=== PATIENT | male | born 1995 | race African-American/Black ===

== ENCOUNTER 2017-12-05 16:31 | Emergency (ER) | payer MEDICAID ==
[~2017-12-05] VITALS: Ht 170.2 cm; Wt 72.6 kg
[~2017-12-05 16:31] MED LIST: IBUPROFEN600 M1 PO; NORCO 5-325 TA1 EACH ORAL
[2017-12-05] MEDS ORDERED: NKM (17:05)
[2017-12-05 17:11] VITALS: BP 143/60
--- NOTE | 2017-12-05 17:18 | Emergency Room Report ---
History of Present Illness General Chief Complaint: Laceration Source: Patient Present Illness HPI 22 yo male patient presents to ER complaining of laceration of his right small toe since this morning. Patient reports he was walking in his house in the dark when he accidentally kicked a shovel. Denies injury to toe nail, states skin on base of toe has been "ripped off." Patient denies foot or ankle pain; states he limps when he walk; patient requesting crutches. States he does not think "its broken"; reports able to move toes. Denies use of medication for relief of pain symptoms. Denies bleeding. States he does not know his tetanus vaccination history. Denies LOC, hitting head. Denies fever, chest pain, SOB. Allergies: Coded Allergies: NO KNOWN ALLERGIES (Unverified Allergy, Unknown, 07/25/15) Patient History Past Medical History: see triage record Reviewed Nursing Documentation: PMH: Agreed, PSxH: Agreed Nursing Documentation-PMH Past Medical History: No Stated History Review of Systems All Other Systems: negative except mentioned in HPI Physical Exam Vital Signs Date Time Temp Pulse Resp B/P (MAP) Pulse Ox O2 Delivery O2 Flow Rate FiO2 12/05/17 17:01 98.4 88 16 143/60 97 Room Air 98.4 Sp02 EP Interpretation: reviewed, normal General Appearance: no apparent distress, alert, GCS 15, non-toxic Head: normocephalic, atraumatic Eyes: bilateral eye normal inspection, bilateral eye PERRL ENT: hearing grossly normal, normal pharynx, no angioedema, normal voice Respiratory: chest non-tender, lungs clear, normal breath sounds, speaking full sentences Cardiovascular #1: regular rate, rhythm, no edema Cardiovascular #2: 2+ dorsalis pedis (R), 2+ dorsalis pedis (L) Musculoskeletal: back normal, digits/nails normal, gait/station normal, normal range of motion, non-tender, no calf tenderness, swelling, other - NVI Neurologic: alert, oriented x3, responsive, motor strength/tone normal, sensory intact, speech normal Psychiatric: mood/affect normal Skin: no rash, warm/dry, palpation normal, well hydrated, other - right small toe: 1cm avulsion of skin inferior to nail, no bleeding, no damage to nail, no subungual hematoma, no damage to cuticle Medical Decision Making PA Attestation Dr. Umana is my supervising Physician whom patient management has been discussed with. Diagnostic Impression: Primary Impression: Avulsion of skin ER Course Pt presents to ED c/o laceration on right wrist. DDX considered but are not limited to laceration, abrasion, contusion, cellulitis. VITAL SIGNS are WNL, patient is afebrile ED INTERVENTIONS: Xray of right foot. Negative for fracture. Results discussed with patient. Toradol provided to patient for pain relief. Tdap provided to patient. Wound does not require sutures at this time. Digital block performed using Lidocaine 1%. Wound was cleaned and irrigated using normal saline. Wound covered using sterile dressing and Bacitracin. Patient instructed to follow up with primary care provider for wound check. Patient instructed to keep dressing clean and dry, do not allow to get wet. Patient instructed to not wear closed toe shoes at this time to prevent infection. Patient reports understanding and agreement to treatment plan. Crutches and hard soled shoe provided to patient. DISCHARGE: Rx provided for Bactrim to prevent infection. Rx provided for Ibuprofen for pain relief. At this time pt is stable for d/c to home. Will provide with patient care instructions and any necessary prescriptions. Patient to take medication as instructed. Care plan and follow-up instructions provided. Work note provided to patient. Patient questions asked and answered. Patient instructed to follow-up with primary care provider in 1-3 days for wound check and 7-10 days for removal of sutures. Patient instructed to followup with PCP to discuss further treatment plan and ability to go to work, ER precautions given. Patient instructed to return to ER immediately for any new or worsening of symptoms. Other X-Ray Diagnostic Results Other X-Ray Diagnostic Results : X-Ray ordered: right foot Indication: Pain EP Interpretation: Yes PA Xray: Interpretation reviewed, by supervising MD, and agrees with findings. Interpretation: no dislocation, no soft tissue swelling, no fractures Impression: No acute disease OLEG Scribe Text Reji Pascual PA-C Last Vital Signs Date Time Temp Pulse Resp B/P (MAP) Pulse Ox O2 Delivery O2 Flow Rate FiO2 12/05/17 17:01 98.4 88 16 143/60 97 Room Air 98.4 Disposition: HOME, SELF-CARE Condition: Stable Scripts Ibuprofen* (MOTRIN*) 600 Mg Tablet 600 MG ORAL Q8H Y for For Pain, #30 TAB 0 Refills Prov: Ezra Pascual 12/05/17 Trimethoprim/Sulfamethoxazole 160/800* (BACTRIM DS TABLET*) 1 Each Tablet 1 TAB ORAL TWICE A DAY for 7 Days, #14 TAB Prov: Ezra Pascual 12/05/17 Patient Instructions: Nonsutured Laceration Care Additional Instructions: Followup with primary care provider in 3 -5 days. Take medications as directed. Patient questions asked and answered. ER precautions given, patient instructed to return to ER immediately for any new or worsening of symptoms. Ezra Pascual Dec 05, 2017 17:18
[2017-12-05] MEDS ORDERED: Bacitracin Oint UD TOPIC ONE (17:30)
[2017-12-05] MEDS ORDERED: Ketorolac 30mg Inj IM ONE (17:30)
[2017-12-05] MEDS ORDERED: Tetanus/Diptheria/Pertussis Vaccine 0.5ml Syr IM ONE (17:30)
[2017-12-05] MEDS ORDERED: BACTRIM DS TAB1 EAC1 ORAL (17:32)
[2017-12-05] MEDS ORDERED: IBUPROFEN600 MG ORAL (17:38)
[2017-12-05 18:34] VITALS: BP 143/60
--- NOTE | 2017-12-06 10:53 | Diagnostic Imaging Report ---
Indication: Pain Comparison: None Findings: 3 views of the right foot were obtained. No acute fractures, malalignment, erosions or periostitis are identified. Soft tissues are unremarkable. Impression: No acute findings.
== END 2017-12-05 18:45 | disposition home or self-care (01) ==
LOC: EMR 17:31
DX: S91.104A Unspecified open wound of right lesser toe(s) without damage to nail, initial encounter (principal); W22.8XXA Striking against or struck by other objects, initial encounter; Y92.009 Unspecified place in unspecified non-institutional (private) residence as the place of occurrence of the external cause; Z23 Encounter for immunization
CPT/HCPCS: 73630; 90471; 90715; 96372; 99283; J1885